=== PATIENT | female | born 2000 | race Caucasian/White ===

== ENCOUNTER 2025-03-18 12:37 | Emergency (ER) | payer OTHER, SELFPAY ==
[2025-03-18 12:45] VITALS: BP 112/59; PULSE 95; RESP 17; TEMP 36.6; O2SAT 99; BMI 19.3
[2025-03-18] MEDS: ONDANSETRON 4 MG ODT SL (13:12)
--- NOTE | 2025-03-18 13:15 | ED.NAVMDI ---
HPI - Nausea/Vomiting/Diarrhea <Jimena Parker PA-C - Last Filed: 03/18/25 13:28> General Chief complaint: Nausea/Vomiting/Diarrhea Stated complaint: nausea, type 2 diabetic, nothing helping with naus Time Seen by Provider: 03/18/25 13:15 History of Present Illness HPI Narrative: Ms. Reyes is a very pleasant 24-year-old female with a past medical history of type 2 diabetes controlled by diet, appendectomy, who presents to the emergency department for nausea since last night. Patient reports she is visiting the area for a wedding, was at a wedding last night ate pizza, 1 beer, 2 water bottles but slowly started to become nauseous and this morning the nausea persisted with decreased appetite as well. She tried multiple [id number] nausea medications but nothing was working and she has a take a flight back home this evening and was hoping for nausea medication. She denies abdominal pain, fevers, chills, diarrhea, vomiting. She has not had a bowel movement today. No dysuria or concerns for . Nobody else with the wedding is feeling sick. Related Data Previous Rx's Medication Instructions Recorded ondansetron 4 mg disintegrating 4 mg PO Q8H PRN nausea and 03/18/25 tablet vomiting #15 tabs Allergies Allergy/AdvReac Type Severity Reaction Status Date / Time No Known Drug Allergies Allergy Verified 03/18/25 12:52 Review of Systems <Jimena Parker PA-C - Last Filed: 03/18/25 13:28> Review of Systems ROS Unobtainable: All systems reviewed & are unremarkable except as noted in HPI and below Patient History <Jimena Parker PA-C - Last Filed: 03/18/25 13:28> Social History Smoking Status: Never smoker Smoking Status: Never smoker Exam <Jimena Parker PA-C - Last Filed: 03/18/25 13:28> Narrative Exam Narrative: GENERAL: 24 year old patient appears stated age. Well-developed patient, in no acute distress. HEAD: Atraumatic. Normocephalic. NECK: Trachea midline. Cervical ROM intact. CARDIOVASCULAR: Regular rate and rhythm. RESPIRATORY: ?Nonlabored respirations. ?Speaking in clear, full sentences. ?Clear to auscultation. Breath sounds equal bilaterally. No wheezes, rales, or rhonchi. ? GASTROINTESTINAL: Abdomen soft, non-tender, nondistended. NEURO: AOx3. ?Clear speech. ?Moves all 4 extremities appropriately. SKIN: No rash or erythema of visible areas Initial Vital Signs Initial Vital Signs: Vital Signs Temperature 98 F 03/18/25 12:45 Pulse Rate 95 H 03/18/25 12:45 Respiratory Rate 17 03/18/25 12:45 Blood Pressure 112/59 L 03/18/25 12:45 Pulse Oximetry 99 03/18/25 12:45 Oxygen Delivery Method Room Air 03/18/25 12:45 <Laney Watt DO - Last Filed: 03/20/25 09:58> Initial Vital Signs Initial Vital Signs: Vital Signs Temperature 98 F 03/18/25 12:45 Pulse Rate 95 H 03/18/25 12:45 Respiratory Rate 17 03/18/25 12:45 Blood Pressure 112/59 L 03/18/25 12:45 Pulse Oximetry 99 03/18/25 12:45 Oxygen Delivery Method Room Air 03/18/25 12:45 Course <Jimena Parker PA-C - Last Filed: 03/18/25 13:28> Orders Ordered: Discontinued Medications Ondansetron HCl (Ondansetron 4 Mg/2 Ml Inj) 4 mg IV NOW PRN PRN Reason: Nausea And Vomiting Ondansetron HCl (Ondansetron 4 Mg Odt) 4 mg SL NOW PRN PRN Reason: Nausea And Vomiting Last Admin: 03/18/25 13:12 Dose: 4 mg Documented By: NATALEE Vital Signs Vital signs: Vital Signs - 8 hr 03/18/25 12:45 Temperature 98 F Pulse Rate 95 H Respiratory Rate 17 Blood Pressure 112/59 L Pulse Oximetry 99 Oxygen Delivery Method Room Air <Laney Watt DO - Last Filed: 03/20/25 09:58> Orders Ordered: Discontinued Medications Ondansetron HCl (Ondansetron 4 Mg/2 Ml Inj) 4 mg IV NOW PRN PRN Reason: Nausea And Vomiting Ondansetron HCl (Ondansetron 4 Mg Odt) 4 mg SL NOW PRN PRN Reason: Nausea And Vomiting Last Admin: 03/18/25 13:12 Dose: 4 mg Documented By: NATALEE Vital Signs Vital signs: Vital Signs - 8 hr 03/18/25 12:45 Temperature 98 F Pulse Rate 95 H Respiratory Rate 17 Blood Pressure 112/59 L Pulse Oximetry 99 Oxygen Delivery Method Room Air MDM - Nausea/Vomiting/Diarrhea <Jimena Parker PA-C - Last Filed: 03/18/25 13:28> Lab Data Labs: Point of Care Testing Test Results Negative Glucose POC 78 MDM Narrative Medical decision making narrative: 24-year-old female with a past medical history of type 2 diabetes controlled by diet, appendectomy, who presents to the emergency department for nausea since last night. Differential diagnosis includes but is not limited to food-borne illness, gastroenteritis, , etc. On exam patient is in no acute distress, nontoxic appearing, vital signs appropriate. Abdomen soft and nontender. She has been having nausea with no vomiting or diarrhea, no pain fevers or other concerning symptoms however nausea has not been improved with OTC regimens and patient was hoping for nausea medication before getting a flight this evening. She was given oral Zofran in the ED, tolerating teena cristhian, feels well to go home. Prescription of Zofran sent to pharmacy of choice. Discussed strict ED return precautions and recommended bland diet and increase electrolytes. She verbalized understanding of all information agreeable with the plan. She is stable for discharge home. <Laney Watt DO - Last Filed: 03/20/25 09:58> Lab Data Labs: Point of Care Testing Test Results Negative Glucose POC 78 Discharge Plan Departure Patient Disposition: Home Clinical Impression: Nausea Instructions: DI for Nausea -- Adult Activity Restrictions/Additional Instructions: Dear Ms. Reyes, Thank you for coming to the emergency department. Today you have been prescribed ondansetron which is nausea medication. Please take 4-8 mg every 8 hours as needed for nausea. Please take small sips of teena cristhian, Pedialyte, or other electrolyte beverages today and eat only bland small foods. Please return to the emergency department if you develop fevers, chills, severe pain or inability to keep down fluids or any other concerns. Please follow up with your primary care doctor within the next 2-3 days for ER follow-up. (If you do not have a PCP you can call [phone]. ?to schedule an appointment with an [facility] Primary Care Provider) IF YOU DEVELOP ANY NEW OR WORSENING SYMPTOMS, RETURN TO THE ER! Please read the attached instructions, they highlight more specific treatments and interventions for you at home. Thank you for letting me participate in your care, Jimena Parker PA-C Prescriptions: New ondansetron 4 mg tablet,disintegrating 4 mg PO Q8H PRN (Reason: nausea and vomiting) Qty: 15 0RF Stand Alone Forms: Patient Portal/API/Survey ED Sign-out <Laney Watt DO - Last Filed: 03/20/25 09:58> Cosign ED Attending Marcelo Attestation: I was available for consultation.
[2025-03-18 13:30] VITALS: BP 110/60; PULSE 91; RESP 16; O2SAT 100
== END 2025-03-18 13:32 | disposition home or self-care (01) ==
PROVIDERS: Emergency Provider Physician Assistant
DX: R11.0 Nausea (principal)
CPT/HCPCS: 81025; 82962; 99283